=== PATIENT | male | born 1990 | race Caucasian/White ===

== ENCOUNTER 2024-02-21 12:40 | Inpatient (IN) | payer OTHER ==
[~2024-02-21] VITALS: Ht 182.9 cm; Wt 68.0 kg
[2024-02-21] MEDS ORDERED: ARIP20TA62 PO (12:49)
[2024-02-21] MEDS ORDERED: AMLO10TA80 PO (12:49)
[2024-02-21] MEDS ORDERED: METO25TA6 PO (12:49)
[2024-02-21] MEDS ORDERED: insulin (12:49)
[2024-02-21] MEDS ORDERED: GABA-532 PO (12:49)
[2024-02-21] MEDS ORDERED: CYAN-33 PO (12:49)
[2024-02-21] MEDS ORDERED: LINA5TAB PO (12:49)
[2024-02-21 13:48] LABS: BASOPHILS % 0.6 % (0.0-2.0); DIFFERENTIAL COMMENT 0; EOSINOPHILS % 4.2 % (0.0-5.0); HEMATOCRIT. 35.3 % (42.0-52.0); HEMOGLOBIN. 11.6 g/dL (14.0-18.0); LYMPHOCYTES % 19.6 % (20.0-50.0); MEAN CORPUSCULAR HEMOGLOBIN 25.9 pg (28.0-32.0); MEAN CORPUSCULAR HGB CONC 32.9 g/dL (31.0-37.0); MEAN CORPUSCULAR VOLUME 78.9 fL (80.0-94.0); MEAN PLATELET VOLUME 7.8 fl (7.4-10.4); MONOCYTES % 5.3 % (2.0-8.0); NEUTROPHILS % 70.3 % (40.0-76.0); PLATELET 378 x1000/uL (130-400); RED BLOOD CELL COUNT 4.47 mill/uL (4.7-6.1); RED CELL DISTRIBUTION WIDTH 20.9 % (11.6-14.6); WHITE BLOOD COUNT 11.8 x1000/uL (4.5-11.0)
[2024-02-21 13:58] LABS: CHLORIDE 111 mEq/L (98-107); POTASSIUM 4.8 mEq/L (3.5-5.1); SODIUM 141 mEq/L (136-145)
[2024-02-21 13:59] LABS: CALCIUM 8.9 mg/dL (8.7-10.4); CARBON DIOXIDE 27 mEq/L (21-32)
[2024-02-21 14:00] LABS: INR 0.9; PROTHROMBIN TIME 10.6 sec (9.6-11.0)
[2024-02-21 14:04] LABS: CREATININE 2.9 mg/dL (0.6-1.3); GLUCOSE 80 mg/dL (70-105); TROPONIN I HIGH SENSITIVITY 8 ng/L (3.0-53); UREA NITROGEN BLOOD 40 mg/dL (9-23)
[2024-02-21] MEDS: SODIUM CHLORIDE 0.9% 1,000 ML IV ONE (16:46)
[2024-02-21] MEDS: ARIPIPRAZOLE 5MG TABLET PO SCH (21:30)
[2024-02-21] MEDS: SODIUM CHLORIDE 0.9% 1,000 ML IV SCH (22:10)
[2024-02-21] MEDS: GABAPENTIN 300MG CAPSULE PO SCH (22:10)
[2024-02-21] MEDS: AMLODIPINE 10MG TABLET PO SCH (22:10)
[2024-02-21] MEDS: BLOOD SUGAR DIAGNOSTIC STRIP TEST SCH (22:17)
[2024-02-21] MEDS ORDERED: DEXTROSE 50% WATER 50ML SYRINGE IV PRN (22:30)
[2024-02-21 23:00] VITALS: BP 143/93; PULSE 83; RESP 18; TEMP 36.5848
[2024-02-22] VITALS: BP 142/65; PULSE 80; RESP 18; TEMP 36.78072; O2SAT 97
[2024-02-22 04:00] VITALS: BP 136/87; PULSE 85; RESP 16; TEMP 36.89184; O2SAT 96
[2024-02-22 06:44] LABS: CHLORIDE 112 mEq/L (98-107); SODIUM 140 mEq/L (136-145)
[2024-02-22] MEDS ORDERED: BLOOD SUGAR DIAGNOSTIC STRIP TEST SCH (06:45)
[2024-02-22 06:47] LABS: CALCIUM 8.5 mg/dL (8.7-10.4); CARBON DIOXIDE 22 mEq/L (21-32)
[2024-02-22 06:52] LABS: CREATININE 2.7 mg/dL (0.6-1.3); GLUCOSE 72 mg/dL (70-105); TRIGLYCERIDE 141 mg/dL (0-150); UREA NITROGEN BLOOD 33 mg/dL (9-23)
[2024-02-22 06:53] LABS: ALANINE AMINOTRANSFERASE 25 IU/L (10-49); LDL CHOLESTEROL 97 mg/dL (5-100)
[2024-02-22 06:54] LABS: ALBUMIN 3.3 g/dL (3.2-4.8); ASPARTATE AMINOTRANSFERASE 18 IU/L (<34); CHOLESTEROL 156 mg/dL (<200); HDL CHOLESTEROL 40 mg/dL (>55)
[2024-02-22 06:55] LABS: BILIRUBIN TOTAL < 0.2 mg/dL (0.1-1.0); PROTEIN TOTAL 6.2 g/dL (6.0-8.3)
[2024-02-22 07:00] LABS: BASOPHILS % 0.6 % (0.0-2.0); DIFFERENTIAL COMMENT 0; EOSINOPHILS % 5.1 % (0.0-5.0); HEMATOCRIT. 36.9 % (42.0-52.0); HEMOGLOBIN. 11.6 g/dL (14.0-18.0); LYMPHOCYTES % 27.9 % (20.0-50.0); MEAN CORPUSCULAR HGB CONC 31.6 g/dL (31.0-37.0); MEAN CORPUSCULAR VOLUME 79.1 fL (80.0-94.0); MEAN PLATELET VOLUME 8.3 fl (7.4-10.4); MONOCYTES % 5.5 % (2.0-8.0); NEUTROPHILS % 60.9 % (40.0-76.0); PLATELET 415 x1000/uL (130-400); RED BLOOD CELL COUNT 4.66 mill/uL (4.7-6.1); RED CELL DISTRIBUTION WIDTH 20.9 % (11.6-14.6); WHITE BLOOD COUNT 10.6 x1000/uL (4.5-11.0)
[2024-02-22 07:10] LABS: HEPATITIS B SURFACE ANTIGEN NEGATIVE (Negative)
[2024-02-22 07:31] LABS: HEPATITIS C AB NON REACTIVE (Neg) (Negative)
[2024-02-22 08:00] VITALS: BP 140/81; PULSE 89; RESP 20; TEMP 37.00296; O2SAT 96
[2024-02-22] MEDS: INSULIN LISPRO 100 UNITS/ML SUBCUT SCH (08:10)
[2024-02-22] MEDS ORDERED: IPRATROPIUM/ALBUTEROL 0.5-3(2.5)MG/3ML NEB HHN PRN (11:30)
[2024-02-22] MEDS ORDERED: ONDANSETRON HCL 4MG/2ML INJ IV PRN (11:30)
[2024-02-22] MEDS ORDERED: DOCUSATE SODIUM 100MG CAPSULE PO PRN (11:30)
[2024-02-22] MEDS ORDERED: ACETAMINOPHEN 325MG TABLET PO PRN ×2 (11:30)
[2024-02-22 12:00] VITALS: BP 159/91; PULSE 98; RESP 20; TEMP 37.16964
[2024-02-22 12:27] LABS: CREATINE KINASE MB FRACTION 3.8 ng/mL (0.5-3.6); TROPONIN I HIGH SENSITIVITY 7 ng/L (3.0-53)
[2024-02-22] MEDS: DEXT 5%/0.45% NACL 1000ML 1,000 ML IV SCH (12:28)
[2024-02-22] MEDS: PANTOPRAZOLE SODIUM 40 MG/VIAL IV SCH (12:28)
[2024-02-22 12:29] LABS: CREATINE KINASE 84 IU/L (46-171)
[2024-02-22 12:46] LABS: ETHANOL BLOOD < 10 mg/dL (<10)
[2024-02-22] MEDS: ENOXAPARIN 40MG/0.4ML SYR SUBCUT SCH (13:01)
[2024-02-22 16:00] VITALS: BP 141/87; PULSE 84; RESP 20; TEMP 36.44736; O2SAT 96
[2024-02-22 18:56] LABS: CLARITY URINE CLEAR (CLEAR); COLOR URINE YELLOW (YELLOW); GLUCOSE URINE 3+ (NEGATIVE); KETONES URINE NEGATIVE (NEGATIVE); LEUKOCYTE ESTERASE URINE NEGATIVE (NEGATIVE); NITRITE URINE NEGATIVE (NEGATIVE); OCCULT BLOOD URINE TRACE (NEGATIVE); PROTEIN URINE 3+ (NEGATIVE); SPECIFIC GRAVITY URINE 1.014 (1.005-1.030); UROBILINOGEN URINE 0.2 E.U./dL (0.2-1.0)
[2024-02-22 19:17] LABS: *AMPHETAMINES SCREEN URINE NEGATIVE (NEGATIVE); *BARBITURATES SCREEN URINE NEGATIVE (NEGATIVE); *BENZODIAZEPINES SCREEN URINE NEGATIVE (NEGATIVE); *COCAINE SCREEN URINE NEGATIVE (NEGATIVE)
[2024-02-22 19:18] LABS: CANNABINOID URINE SCREEN NEGATIVE (NEGATIVE); ECSTASY MDMA SCREEN URINE NEGATIVE (NEGATIVE); METHADONE URINE SCREEN NEGATIVE (NEGATIVE); OPIATES URINE SCREEN NEGATIVE (NEGATIVE); PHENCYCLIDINE URINE SCREEN NEGATIVE (NEGATIVE)
[2024-02-22 20:00] VITALS: BP 140/78; PULSE 97; RESP 18; TEMP 37.00296; O2SAT 96
[2024-02-22 20:14] LABS: BACTERIA URINE TRACE; RBC URINE 0-2 /hpf (0-2); SQUAMOUS EPITHELIAL CELL URINE RARE /lpf (RARE/1+); WBC URINE 0-2 /hpf (0-2)
[2024-02-23] VITALS: BP 159/77; PULSE 85; RESP 20; TEMP 37.00296; O2SAT 97
[2024-02-23 04:00] VITALS: BP 167/90; PULSE 91; RESP 20; TEMP 36.61404; O2SAT 98
[2024-02-23] MEDS: CLONIDINE 0.1MG TABLET PO PRN (05:24)
[2024-02-23 06:47] LABS: PROTHROMBIN TIME 10.8 sec (9.6-11.0)
[2024-02-23 07:14] LABS: CARBON DIOXIDE 20 mEq/L (21-32); CHLORIDE 110 mEq/L (98-107); POTASSIUM 5.4 mEq/L (3.5-5.1); SODIUM 136 mEq/L (136-145)
[2024-02-23 07:15] LABS: CALCIUM 8.3 mg/dL (8.7-10.4)
[2024-02-23 07:17] LABS: TOTAL IRON BINDING CAPACITY 338 ug/dl (250-425)
[2024-02-23 07:19] LABS: IRON 31 ug/dL (65-175)
[2024-02-23 07:20] LABS: UREA NITROGEN BLOOD 34 mg/dL (9-23)
[2024-02-23 07:21] LABS: ALANINE AMINOTRANSFERASE 39 IU/L (10-49); ALBUMIN 3.3 g/dL (3.2-4.8); ASPARTATE AMINOTRANSFERASE 27 IU/L (<34)
[2024-02-23 07:22] LABS: BILIRUBIN TOTAL < 0.2 mg/dL (0.1-1.0); PHOSPHORUS 4.3 mg/dL (2.5-4.9); PROTEIN TOTAL 5.9 g/dL (6.0-8.3)
[2024-02-23 07:25] LABS: FERRITIN 16 ng/mL (22-322)
[2024-02-23 07:26] LABS: FOLIC ACID (FOLATE) SERUM 6.88 ng/mL (>5.38)
[2024-02-23 07:43] LABS: BILIRUBIN DIRECT < 0.1 mg/dL (<=3.0)
[2024-02-23 08:00] VITALS: BP_SYST 15; BP_SYST 165; BP_DIAS 93; PULSE 85; RESP 18; TEMP 36.61404; O2SAT 97
[2024-02-23 08:26] LABS: GLUCOSE 401 mg/dL (70-105)
[2024-02-23 08:37] LABS: DIFFERENTIAL COMMENT 0; HEMATOCRIT. 35.1 % (42.0-52.0); HEMOGLOBIN. 11.1 g/dL (14.0-18.0); LYMPHOCYTES % 23.7 % (20.0-50.0); MEAN CORPUSCULAR HEMOGLOBIN 25.3 pg (28.0-32.0); MEAN CORPUSCULAR HGB CONC 31.7 g/dL (31.0-37.0); MEAN CORPUSCULAR VOLUME 79.7 fL (80.0-94.0); MEAN PLATELET VOLUME 8.5 fl (7.4-10.4); MONOCYTES % 5.6 % (2.0-8.0); NEUTROPHILS % 63.7 % (40.0-76.0); PLATELET 396 x1000/uL (130-400); RED BLOOD CELL COUNT 4.41 mill/uL (4.7-6.1); RED CELL DISTRIBUTION WIDTH 20.8 % (11.6-14.6); WHITE BLOOD COUNT 10.8 x1000/uL (4.5-11.0)
[2024-02-23] MEDS: SODIUM CHLORIDE 0.45% 1,000 ML IV SCH (09:15)
[2024-02-23] MEDS: INSULIN LISPRO 100 UNITS/ML SUBCUT NR (09:15)
[2024-02-23] MEDS ORDERED: SODIUM POLYSTYRENE SULFONATE 15 G/60 ML BOT PO ONE (09:15)
[2024-02-23] MEDS: INSULIN GLARGINE 100 UNITS/ML SUBCUT SCH (10:00)
[2024-02-23 11:41] LABS: CREATINE KINASE 68 IU/L (46-171)
[2024-02-23 12:00] VITALS: BP 141/84; PULSE 87; RESP 20; TEMP 36.50292; O2SAT 99
[2024-02-23] MEDS: SODIUM ZIRCONIUM CYCLOSILICATE 10GM/PACKET PO NR (12:45)
[2024-02-23] MEDS: INSULIN LISPRO 100 UNITS/ML SUBCUT SCH (13:10)
[2024-02-23] MEDS: SODIUM CHLORIDE 0.9% 1,000 ML IV SCH (14:34)
[2024-02-23 14:42] LABS: VITAMIN B12 SERUM 1117 pg/mL (211-911)
[2024-02-23 16:00] VITALS: BP 123/79; PULSE 79; RESP 18; TEMP 36.6696; O2SAT 100
[2024-02-23 20:00] VITALS: BP 152/81; PULSE 78; RESP 20; TEMP 37.11408; O2SAT 96
[2024-02-24] VITALS (7 sets, daily range): BP systolic 147–168; BP diastolic 76–98; PULSE 76–88; RESP 18–20; TEMP 36.44736–37.11408; O2SAT 97–100
[2024-02-24 07:11] LABS: POTASSIUM 5.2 mEq/L (3.5-5.1)
[2024-02-24 07:12] LABS: CALCIUM 8.5 mg/dL (8.7-10.4)
[2024-02-24] MEDS: INSULIN LISPRO 100 UNITS/ML SUBCUT SCH ×2 (08:19→12:49)
[2024-02-24] MEDS: SODIUM ZIRCONIUM CYCLOSILICATE 10GM/PACKET PO NR (10:34)
[2024-02-24] MEDS: INSULIN GLARGINE 100 UNITS/ML SUBCUT SCH (10:39)
[2024-02-25] VITALS (7 sets, daily range): BP systolic 120–177; BP diastolic 74–95; PULSE 82–97; RESP 18–20; TEMP 36.55848–37.16964; O2SAT 93–100
[2024-02-25 06:49] LABS: CALCIUM 8.8 mg/dL (8.7-10.4); POTASSIUM 4.5 mEq/L (3.5-5.1)
[2024-02-25 06:55] LABS: CREATININE 2.7 mg/dL (0.6-1.3)
[2024-02-25] MEDS ORDERED: LISI10TA26 MT (12:56)
[2024-02-25] MEDS: HYDRALAZINE 20MG/ML VIAL IV NR (13:43)
[2024-02-25] MEDS: HYDRALAZINE HCL 25MG TABLET PO SCH (14:00)
== END 2024-02-25 18:21 | disposition home or self-care (01) | DRG 469 ==
LOC: ER 12:53 → 5WST 15:49 → 7WST 22:44
PROVIDERS: ADMIT Internal Medicine; ATTEND Internal Medicine
DX: N17.9 Acute kidney failure, unspecified (principal); E10.22 Type 1 diabetes mellitus with diabetic chronic kidney disease; D72.829 Elevated white blood cell count, unspecified; D50.9 Iron deficiency anemia, unspecified; E87.5 Hyperkalemia; I12.9 Hypertensive chronic kidney disease with stage 1 through stage 4 chronic kidney disease, or unspecified chronic kidney disease; N18.30 Chronic kidney disease, stage 3 unspecified; R80.9 Proteinuria, unspecified; Z20.822 Contact with and (suspected) exposure to COVID-19; R25.1 Tremor, unspecified; F20.9 Schizophrenia, unspecified; F12.90 Cannabis use, unspecified, uncomplicated; F17.210 Nicotine dependence, cigarettes, uncomplicated; F31.9 Bipolar disorder, unspecified; Z79.4 Long term (current) use of insulin; Z79.899 Other long term (current) drug therapy
CPT/HCPCS: 36415; 71045; 76770; 80048; 80053; 80061; 80076; 80305; 80320; 81003; 82550; 82553; 82607; 82728; 82746; 82962; 83036; 83525; 83540; 83550; 83605; 83735; 83880; 84100; 84145; 84484; 85025; 86705; 87340; 87426; 99285; J0360; J1650; J1815; J2470; J7030; J7050; G0480